=== PATIENT | female | born 1995 | race Caucasian/White ===

== ENCOUNTER 2024-09-06 15:07 | Emergency (ER) | payer OTHER ==
[~2024-09-06] VITALS: Ht 165.1 cm; Wt 60.0 kg
[2024-09-06 15:09] VITALS: O2SAT 100
[2024-09-06] MEDS: ACETAMINOPHEN 325MG TABLET PO ONE (17:54)
[2024-09-06] MEDS ORDERED: TOPUD MT (18:35)
[2024-09-06] MEDS ORDERED: NAPR-679 MT (18:35)
[2024-09-06 19:57] VITALS: BP 105/64; PULSE 68; RESP 14; TEMP 37.11408; O2SAT 99
== END 2024-09-06 20:01 | disposition home or self-care (01) ==
LOC: ER 15:07
DX: S30.0XXA Contusion of lower back and pelvis, initial encounter (principal); W22.09XA Striking against other stationary object, initial encounter; Y93.89 Activity, other specified; Y92.098 Other place in other non-institutional residence as the place of occurrence of the external cause; Y99.8 Other external cause status; Z79.1 Long term (current) use of non-steroidal anti-inflammatories (NSAID)
CPT/HCPCS: 73502; 99283